=== PATIENT | male | born 1945 | race Caucasian/White ===

== ENCOUNTER 2017-04-17 05:06 | Day surgery (SDC) | payer MEDICARE, BC ==
[2017-04-14 11:20] LABS: BASOPHILS 0.3 % (0-2); EOSINOPHILS 3.3 % (0-7); HEMATOCRIT 41.1 % (42.0-54.0); HEMOGLOBIN 14.3 g/dL (13.5-17.5); IMMATURE GRANULOCYTES 0.1 % (0-5); LYMPHOCYTES 15.4 % (15-50); MCH 32.9 pg (26.0-34.0); MCHC 34.8 g/dL (31.0-37.0); MCV 94.5 fL (80.0-100.0); MEAN PLATELET VOLUME 9.3 fL (7.4-10.4); MONOCYTES 8.8 % (2-11); NEUTROPHILS 72.1 % (40-80); PLATELET COUNT 163 10x3/uL (130-400); RBC 4.35 10x6/uL (4.20-6.10); RDW 14.6 % (11.5-14.5); WBC 6.7 10x3/uL (4.8-10.8)
[2017-04-14 11:41] LABS: APTT 32.7 SECONDS (22.8-39.4); CALC OSMOLALITY 280 mosm/kg (275-300); CALCIUM 9.2 mg/dL (8.5-10.1); CARBON DIOXIDE 29.7 mmol/L (21.0-32.0); CHLORIDE - SERUM 105 mmol/L (98-107); CREATININE - SERUM 0.8 mg/dL (0.6-1.3); GLUCOSE 91 mg/dL (74-106); INR 1.18 (0.85-1.17); POTASSIUM - SERUM 4.4 mmol/L (3.5-5.1); PROTIME 14.9 SECONDS (11.6-15.0); SODIUM 141 mmol/L (136-145); UREA NITROGEN 13 mg/dL (7-18); eGFR NON AFRICAN AMERICAN > 90 mL/min (90-120)
[~2017-04-17 05:06] MED LIST: BETAPACE 80 MG80 MG PO; FLOMAX0.4 MG PO; NEURONTIN 300300 MG PO; PEPCID AC20 MG PO
[2017-04-17 08:44] VITALS: BP 122/74; BMI 26.5
[2017-04-17] MEDS ORDERED: HYDROCODON-ACE1 EAC7 PO (11:45)
--- NOTE | 2017-04-17 13:39 | OP ---
PATIENT NAME: OLIVE PINO MEDICAL RECORD: [id number] LOCATION:[facility] ADMISSION DATE: SURGEON: KURT BETHEA MD DATE OF OPERATION: 04/17/2017 SURGEON: Kurt Bethea MD PREOPERATIVE DIAGNOSES: 1. Left inguinal hernia. 2. Rectal cancer. POSTOPERATIVE DIAGNOSES: 1. Left inguinal hernia. 2. Rectal cancer. PROCEDURE PERFORMED: Left inguinal herniorrhaphy with mesh. ANESTHESIA: General. COMPLICATIONS: None. Case was clean. ESTIMATED BLOOD LOSS: 20 cc. OPERATIVE COURSE: After consent was obtained, the patient was taken to the operating room and placed in the supine position on the operating table. Next, general anesthesia was given via endotracheal intubation. After a timeout was performed to confirm the correct patient and procedure, left inguinal region was prepped and draped in typical sterile fashion. A 20 cc of local anesthetic were injected in the inguinal nerve block. External landmarks were identified. Transverse incision was made with a 15 blade scalpel. Dissection continued to the level of the external oblique fascia using electrocautery. An additional 10 cc of local anesthetic were injected below the external oblique fascia. The fascia was incised with a 15 blade scalpel. The fascia was then opened through the external ring using Metzenbaum scissors. It was continued towards the ASIS with Metzenbaum scissors. Flaps were created with gentle blunt dissection. The cord structures were mobilized off the pubic tubercle. A Virgil dressing was placed. The patient had a large direct inguinal hernia. At this time, the conjoined tendon was mobilized. The conjoined tendon was mobilized and sutured to the inguinal ligament using interrupted 0 Vicryl suture, loosely recreated in the internal ring. A small hernia sac was dissected off the spermatic cord. The hernia repair was then refinished with a Ayaz repair. A ProGrip mesh was cut to size. It was sutured in place using interrupted 2-0 Prolene suture and again loosely reapproximating the internal ring. Florinda powder was applied. The external oblique fascia was then closed with 2-0 Vicryl suture loosely recreating the external ring. The wound was copiously irrigated and suctioned. Subcutaneous tissue was then closed with 3-0 Vicryl suture. The skin was closed with 4-0 Monocryl, Mastisol and Steri-Strips. At the end of the case, all needle and instrument counts were correct. No complications occurred. The patient was extubated and transferred to the PACU in stable condition. TRANSINT:[id number] Voice Confirmation ID: [id number] DOCUMENT ID: [id number] OPERATIVE REPORT [id number] OLIVE PINO,KURT Hurd MD at 1339 CC: [id number] DICTATION DATE: 04/17/[address] ENGINEERING TEACHER: 04/17/17 [id number] [place] [address]
== END 2017-04-17 13:55 | disposition home or self-care (01) ==
LOC: D.OPS 05:06 → D.PAN 09:10 → D.OPS 09:15 → D.PAN 11:30 → D.OPS 11:30
PROVIDERS: Anesthesiology
DX: K40.90 Unilateral inguinal hernia, without obstruction or gangrene, not specified as recurrent (principal); K21.9 Gastro-esophageal reflux disease without esophagitis; R00.0 Tachycardia, unspecified; Z85.048 Personal history of other malignant neoplasm of rectum, rectosigmoid junction, and anus; K80.20 Calculus of gallbladder without cholecystitis without obstruction; K43.5 Parastomal hernia without obstruction or gangrene; Z01.812 Encounter for preprocedural laboratory examination